=== PATIENT | male | born 1960 | race Caucasian/White ===

== ENCOUNTER → 2018-01-03 | Outpatient (CLI) | payer BC ==
--- NOTE | 2018-01-03 10:51 | US ---
EXAMINATION TYPE: US scrotum with doppler. Grayscale and color Doppler Duplex imaging performed of t he scrotum. DATE OF EXAM: 01/03/2018 COMPARISON: NONE CLINICAL HISTORY: N50.9 Rt Lump on Testicle. vasectomy 23 years ago. Patient felt lump right side duane t is painful. EXAM MEASUREMENTS: TESTICLES: Right Testicle: 4.7 x 3.1 x 2.4 cm Left Testicle: 5.1 x 3.5 x 2.3 cm EPIDIDYMIS HEAD: Right Epididymis: 1.0 x 1.1 x 0.8 cm Left Epididymis: 1.2 x 1.0 x 0.7 cm Doppler performed to assess for testicular vascularity; good bilateral color flow and waveforms are s een. There is no evidence of testicular torsion. Presence of hydroceles: No Presence of varicoceles: No Collection of vessels at area where patient feels lump. No increased flow with valsalva. IMPRESSION: 1. There appears to be a grouping of vascular structures at the palpable abnormality. 2. Bilateral testicles appear normal
== END | disposition home or self-care (01) ==
LOC: RADUSWWP 09:54
PROVIDERS: ATTEND Family Medicine
DX: N50.9 Disorder of male genital organs, unspecified (principal)
CPT/HCPCS: 76870; 93975

== ENCOUNTER → 2020-07-21 | Outpatient (CLI) | payer BC ==
--- NOTE | 2020-07-22 14:21 | EST ---
EXERCISE STRESS AGE: 59 SEX: Male HT: 5'10" WT: 200 lbs. PROTOCOL: Savage STAGE: 4 DURATION OF EXERCISE: 9 minutes 37 seconds HEART RATE REST: 83 BLOOD PRESSURE REST: 154/98 MAXIMUM HEART RATE ACHIEVED: 141 MAXIMUM BLOOD PRESSURE: 212/104 85% MPHR: 138 100% MPHR: 162 METS: 11.1 INDICATIONS: COPD CLINICAL INFORMATION: Baseline rhythm is sinus mechanism, rate of 83, RSR prime. Baseline blood pressure 154/98 mmHg. Patient exercised on Savage protocol for 9 minutes 37 seconds reaching peak rate 141 beats per minute which is equal to 87% maximum predicted heart rate. Peak blood pressure 212/104 mmHg. Test was terminated secondary to fatigue. There were no chest pain. Electrocardiograph monitoring revealed rare PVCs. There was no evidence of diagnostic ischemic ST deviation. CONCLUSION: 1. Average exercise tolerance with rare PVCs. 2. Normal electrocardiograph stress testing with no evidence of stress-induced ischemia. MMODL / IJN: [id number] /
== END | disposition home or self-care (01) ==
LOC: RADNMMAIN 09:43
PROVIDERS: ATTEND Family Medicine
DX: I49.3 Ventricular premature depolarization (principal); J44.9 Chronic obstructive pulmonary disease, unspecified
CPT/HCPCS: 93017